=== PATIENT | male | born 1995 | race Caucasian/White ===

== ENCOUNTER 2020-11-07 01:54 | Emergency (ER) | payer BC, OTHER ==
[2020-11-07 02:21] VITALS: BMI 26.6
[2020-11-07] MEDS ORDERED: DIPHTH,PERTUSS(ACELL),TET 0.5 ML DISP.SYRIN IM ONE ×2 (02:27→02:51)
[2020-11-07] MEDS ORDERED: CEFAZOLIN 2 GM in DEXTROSE 5%-WATER - 50 ML IVPB ONE (03:43)
[2020-11-07] MEDS ORDERED: CLINDAMYCIN HCL 300 MG CAPSULE PO ONE (03:46)
[2020-11-07] MEDS ORDERED: CEFAZOLIN 2 GM/D5W 2 GM/50 ML ML IVPB ONE (03:53)
[2020-11-07] MEDS ORDERED: CLINDAMYCIN HCL 150 MG CAPSULE (FP) ONE (03:53)
[2020-11-07] MEDS ORDERED: morphine CARPU-JECT 4 MG/1 ML DISP.SYRIN IVPUSH ONE (03:54)
[2020-11-07] MEDS ORDERED: morphine SULFATE 4 MG/ML VIAL ONE (04:28)
[2020-11-07 04:49] LABS: BASO % 0.4 % (0-2.0); EOS % 0.8 % (0-4.5); HEMATOCRIT 41.3 % (35.4-49); HEMOGLOBIN 14.5 GM/dL (11.7-16.9); LYMPH % 27.2 % (8-40); MCH 31.7 pg (25.7-33.7); MCHC 35.1 g/dl (32.0-35.9); MEAN CELL VOLUME 90.4 fl (80-96); MEAN PLT VOLUME 7.2 fl (7.5-11.1); NEUT % 64.6 % (42.8-82.8); PLATELET COUNT 338 10^3/uL (134-434); RBC 4.57 M/mm3 (4.00-5.60); RDW 12.7 % (11.9-15.9); WHITE BLOOD COUNT 10.1 K/mm3 (4.0-10.0)
[2020-11-07 04:59] LABS: INR 0.94 (0.83-1.09); PROTHROMBIN TIME (PATIENT) 11.6 SEC (9.7-13.0)
[2020-11-07 05:02] LABS: ACTIVATED PTT 34.3 SECONDS (25.2-36.5)
[2020-11-07 05:09] LABS: ALBUMIN 4.7 g/dl (3.4-5.0); BLOOD UREA NITROGEN 23.6 mg/dL (7-18); CALCIUM 9.3 mg/dL (8.5-10.1)
[2020-11-07 05:13] LABS: CREATININE 1.2 mg/dL (0.55-1.3)
[2020-11-07 05:15] LABS: BILIRUBIN,TOTAL 0.7 mg/dL (0.2-1); TOT PROT 8.4 g/dl (6.4-8.2)
[2020-11-07 06:36] VITALS: BP 151/94; PULSE 83; TEMP 97.6
== END 2020-11-07 06:36 | disposition short-term general hospital (02) ==
LOC: JER 01:54
PROC: 3E03329 Introduction of Other Anti-infective into Peripheral Vein, Percutaneous Approach (ICD-10-PCS; principal; 2020-11-07)
PROC: 3E0234Z Introduction of Serum, Toxoid and Vaccine into Muscle, Percutaneous Approach (ICD-10-PCS; 2020-11-07)
PROC: 3E033NZ Introduction of Analgesics, Hypnotics, Sedatives into Peripheral Vein, Percutaneous Approach (ICD-10-PCS; 2020-11-07)
DX: S62.637B Displaced fracture of distal phalanx of left little finger, initial encounter for open fracture (principal); S61.317A Laceration without foreign body of left little finger with damage to nail, initial encounter
CPT/HCPCS: 36415; 73130-TC-LT-FY; 80053; 85025; 85610; 85730; 86850; 86900; 86901; 90715; 99285-25; C9803; U0003; U0005